=== PATIENT | female | born 2005 | race Caucasian/White ===

== ENCOUNTER 2024-10-24 12:47 | Emergency (ER) | payer OTHER ==
[~2024-10-24] VITALS: Ht 160 cm; Wt 68.0 kg
[2024-10-24 12:58] VITALS: O2SAT 99
[2024-10-24 13:02] VITALS: BP 132/45; PULSE 96; RESP 16; TEMP 36.7; O2SAT 100
== END 2024-10-24 14:35 | disposition left against medical advice (07) ==
LOC: ER 12:47
DX: Z53.21 Procedure and treatment not carried out due to patient leaving prior to being seen by health care provider (principal)